=== PATIENT | female | born 1990 | race Caucasian/White ===

== ENCOUNTER 2019-07-20 15:02 | Emergency (ER) | payer OTHER, SELFPAY ==
--- NOTE | 2019-07-20 15:12 | XR_ITS ---
WS: [id number] XR chest 1V portable [id number] REASON FOR EXAM: cough/congestion FINDINGS: The heart and mediastinal interfaces normal. The lung del cid are adequately aerated. No pneumonia, pleural effusion, pulmonary edema, pneumothorax , or mass effect. The hilum and apices normal No osseous abnormalities. XR/XR chest 1V portable [id number] IMPRESSION: No active cardiopulmonary disease.
--- NOTE | 2019-07-20 15:12 | ECG_ITS ---
Measurements Intervals [place] Rate: 74 P: 28 VA: 148 QRS: -9 QRSD: 94 T: 13 QT: 384 QTc: 428 SINUS RHYTHM VOLTAGE CRITERIA FOR LVH [MEETS CRITERIA IN ONE OF: R(aVL), S(V1), R(V5), R(V (V5/V6)+S(V1)] No previous ECG available for comparison Electronically Signed On 07-20-2019 19:13:03 [employer] SCI[employer] by Michael Delgado M.D. [email or web address]
[2019-07-20 15:51] VITALS: BP 138/84; PULSE 70; RESP 18; TEMP 36.7; O2SAT 97; BMI 43.0
--- NOTE | 2019-07-20 15:51 | PC.NURSE ---
ekg completed and transmitted
--- NOTE | 2019-07-20 17:13 | ED_ITS ---
Entered by Katelin Solis, acting as scribe for Uzma Stoddard MD Jul 20, 2019 15:02 HPI - Chest Pain General: Chief Complaint: Chest Pain Stated Complaint: CHEST PAIN Time Seen by Provider: 07/20/19 17:08 Source: patient and family Mode of arrival: ambulatory Limitations: no limitations History of Present Illness: HPI narrative: 28 yo female presents with chest wall tenderness. pt states this started at 8 am. pt states she has lifting heavy items. pt has had a cough and increased stress. pt denies any other symptoms a this time. MD complaint: chest pain Onset (ago): day(s) (today) Timing of current episode: constant Prior episodes: No Onset: during rest Pain location: substernal Pain radiation: left arm Severity: mild Quality: sharp Relieving factors: nothing Exacerbating factors: other (stress) Associated symptoms: Reports no associated symptoms and other (cough); Deny abdominal pain, dyspnea, fever(s), nausea or vomiting Treatment prior to arrival: none Risk Factors: Coronary artery disease risk factors: none Thoracic aortic dissection risk factors: none Review of Systems Const: Denies: fever, chills, body aches or change in appetite Eyes: Denies: blurry vision or eye discomfort ENMT: Denies: throat pain or dental pain Resp: Denies: shortness of breath GI: Denies: abdominal pain, nausea, vomiting or diarrhea : Denies: painful urination Musc: Denies: neck pain or back pain Skin/Breast: Denies: rash Neuro: Denies: headache Psych: Denies: depression Terry/Lymph: Denies: easy bruising All/Imm: Denies: hives PFS ED PFSH: Social History Smoking and tobacco status: light tobacco smoker Female Reproductive History: Date of last menstrual period: 06/09/19 Physical Exam Const: COMMON NORMALS: no apparent distress, oriented x3 and healthy appearing HENMT: COMMON NORMALS: normocephalic and head/scalp atraumatic HEAD & SCALP: normocephalic and atraumatic Eye: COMMON NORMALS: PERRL and EOMs intact bilaterally PUPIL: Yes PERRL Neck/C-Spine: COMMON NORMALS: full ROM and supple Chest: COMMONS NORMALS: inspection of chest normal and palpation of chest normal OTHER: Palpation of center of her chest reproduces her pain that is sharp in nature. Pain also reproduced with movement of her left arm. Resp: COMMON NORMALS: normal respiratory effort, no retractions, no use of accessory muscles and clear to auscultation bilaterally AUSCULTATION: clear to auscultation bilaterally Cardio: COMMON NORMALS: regular rate, regular rhythm and no murmurs RATE: regular rate RHYTHM: regular rhythm GI: COMMON NORMALS: normal to inspection, nondistended, normoactive bowel sounds, soft to palpation, non-tender and no masses PALPATION: Yes soft Extremity: COMMON NORMALS: normal to inspection and full ROM Neuro: COMMON NORMALS: oriented x3, moves all extremities and no focal motor deficits Psych: COMMON NORMALS: mental status grossly normal, thought process normal a nd cooperative THOUGHT PROCESS: normal thought process Skin: COMMON NORMALS: no rashes or lesions noted and no wounds GENERAL SKIN EXAM: no rashes or lesions noted Course Vital Signs: Vital signs: Vital Signs Temperature 98.1 F 07/20/19 15:51 Pulse Rate 70 07/20/19 15:51 Respiratory Rate 18 07/20/19 15:51 Blood Pressure 138/84 07/20/19 15:51 Pulse Oximetry 97 07/20/19 15:51 MDM - Chest Pain MDM Narrative: Medical decision making narrative: Patient presents with chest pain that is likely muscular in nature. Patient does have point tenderness on her exam. X-ray and EKG here are normal. She has no signs of cardiac cause or pulmonary embolism. Patient has pain with movement of her left arm as well. Patient prescribed Naprosyn and Robaxin is stable for discharge. She is to follow-up with her primary care doctor in 3 to 5 days return if worsening. Imaging Data^: CXR: Attestation: I personally reviewed and interpreted this imaging study as follows: My impression: no acute abnormality EKG Data^: EKG 1: Attestation: I personally reviewed and interpreted this EKG as follows: EKG interpretation date: 07/20/19 EKG interpretation time: 05:24 Interpretation: nsr hr [address] or t wave abnormalities qrs 94 qtc 412 Discharge Plan Discharge Patient Disposition: Home, Self-Care Clinical Impression: Chest pain Qualifiers: Chest pain type: unspecified Qualified Code(s): R07.9 - Chest pain, unspecified Condition: Stable Prescriptions: New Robaxin-750 750 mg tablet 750 mg PO Q6H Qty: 30 RF: 0 EC-Naprosyn 500 mg tablet,delayed release (DR/EC) 500 mg PO BID PRN (Reason: pain) Qty: 20 RF: 0 No Action amitriptyline RF: 0 Effexor XR RF: 0 Control Pill RF: 0 Discharge Orders: Discharge Order (Routine); Ordered 07/20/19 Ordered By: Uzma Stoddard Referrals: Iris Brown MD [Family Provider] - 4-7 days Discharge Diet: Advance as tolerated Discharge Activity: Resume usual activity Patient Instructions: Chest Pain - Chest Wall Coding Level of Care Code ED Project Manager Finance for Chg Fwd Exam Comprehensive The documentation recorded by the Will cardozo Bridget Annette, accurately reflects the service I personally performed and the decisions made by Richi seay Korby, MD Jul 20, 2019 15:02
[2019-07-20] MEDS: ketorolac 60 mg/2 mL INJ IM (17:54)
[2019-07-20 18:19] VITALS: BP 122/82; PULSE 64; RESP 16; TEMP 36.4; O2SAT 99
== END 2019-07-20 18:20 | disposition home or self-care (01) ==
PROVIDERS: Emergency Provider Emergency Medicine; Family Provider Family Medicine
DX: R07.9 Chest pain, unspecified (principal); F17.200 Nicotine dependence, unspecified, uncomplicated
CPT/HCPCS: 71045; 93005; 96372; 99281; 99283; J1885

== ENCOUNTER → 2019-11-29 13:31 | Outpatient (BNVA) | payer OTHER, SELFPAY | PROVIDERS: Family Provider Family Medicine; Visit Provider Nurse Practitioner Women's Health | DX: Z34.90 Encounter for supervision of normal pregnancy, unspecified, unspecified trimester (principal); Z86.39 Personal history of other endocrine, nutritional and metabolic disease; Z87.42 Personal history of other diseases of the female genital tract | CPT/HCPCS: 84315; 84443; 84702 ==

== ENCOUNTER → 2019-12-18 14:16 | Outpatient (BNVA) | payer OTHER, SELFPAY | PROVIDERS: Family Provider Family Medicine; Visit Provider Obstetrics & Gynecology | DX: Z34.90 Encounter for supervision of normal pregnancy, unspecified, unspecified trimester (principal); Z3A.00 Weeks of gestation of pregnancy not specified | CPT/HCPCS: 80053; 80307; 84315; 85027; 86592; 86762; 86803; 86850; 86900; 87340; 87806 ==

== ENCOUNTER → 2019-12-25 09:17 | Outpatient (BNVA) | payer OTHER, SELFPAY | PROVIDERS: Family Provider Family Medicine; Visit Provider Obstetrics & Gynecology | DX: O09.291 Supervision of pregnancy with other poor reproductive or obstetric history, first trimester (principal); Z86.32 Personal history of gestational diabetes | CPT/HCPCS: 82950 ==

== ENCOUNTER → 2020-03-12 13:41 | Outpatient (BNVA) | payer OTHER, SELFPAY | PROVIDERS: Family Provider Family Medicine; Visit Provider Nurse Practitioner Psychiatric/Mental Health | DX: F41.1 Generalized anxiety disorder (principal); F33.2 Major depressive disorder, recurrent severe without psychotic features | CPT/HCPCS: 99214 ==

== ENCOUNTER → 2020-04-08 07:59 | Outpatient (BNVA) | payer OTHER, SELFPAY | PROVIDERS: Family Provider Family Medicine; Visit Provider Nurse Practitioner Psychiatric/Mental Health | DX: F33.2 Major depressive disorder, recurrent severe without psychotic features (principal); F41.1 Generalized anxiety disorder | CPT/HCPCS: 99212 ==

== ENCOUNTER → 2020-05-16 08:53 | Outpatient (BNVA) | payer OTHER, SELFPAY | PROVIDERS: Family Provider Family Medicine; Visit Provider Nurse Practitioner Psychiatric/Mental Health | DX: F33.2 Major depressive disorder, recurrent severe without psychotic features (principal); F41.1 Generalized anxiety disorder | CPT/HCPCS: 99212 ==